=== PATIENT | female | born 1995 | race Caucasian/White ===

== ENCOUNTER 2022-04-08 02:44 | Emergency (ER) | payer SELFPAY ==
[~2022-04-08] VITALS: Ht 165.1 cm; Wt 78.8 kg
[2022-04-08 02:50] VITALS: BP 134/78
== END 2022-04-08 06:14 | disposition home or self-care (01) ==
LOC: ER 02:57
DX: Z00.00 Encounter for general adult medical examination without abnormal findings (principal); Z97.5 Presence of (intrauterine) contraceptive device
CPT/HCPCS: 74176; 99284